=== PATIENT | male | born 1960 | race Caucasian/White ===

== ENCOUNTER 2018-03-10 13:56 | Observation (INO) ==
[2018-03-10 14:37] VITALS: TEMP 98
--- NOTE | 2018-03-10 14:43 | ED ---
HPI General Chief Complaint: Chest Pain Stated Complaint: chest pain Time Seen by Provider: 03/10/18 14:14 Source: patient Mode of arrival: ambulatory Limitations: no limitations History of Present Illness HPI narrative: Patient is a 57-year-old male with history of htn, hyperlipidemia , CAD, history of 21 cast with 19 stents placed, who presents the emergency room for evaluation of chest pain. Patient reports that chest began last night , patient reports that he has a sharp, tight sensation to his substernum. Patient reports that chest pain does radiate to his left shoulder as well as left neck, chest pain is at rest as well as on exertion, he has had shortness of breath with no diaphoresis with the symptoms. Patient reports that nothing makes pain better or worse, he has follow-up with a network pricing consultant, Dr. Ahmadi at [facility] as well as Dr. Kelly in [facility]. Reports concern as his chest pain feels similar to when he has had a heart attack in the past. Complete Quality Measures for STEMI Alert Patients Related Data Allergies Allergy/AdvReac Type Severity Reaction Status Date / Time No Known Allergies Allergy Verified 03/10/18 14:32 Review of Systems Except as stated in HPI: all other systems reviewed are negative [facility] Medical History Medical History CAD (coronary artery disease) (Acute) HTN (hypertension) (Acute) High cholesterol (Acute) Surgical History Surgical History Hx of tonsillectomy (Acute) Stented coronary artery (Acute) Social History Social History Substance History: No History of Abuse Second Hand Smoke Exposure: No Smoking Status: Current every day smoker Tobacco Type: Cigarettes How Often Do You Have a Drink Containing Alcohol: Never Recent Travel in [facility] within the Last 8 Weeks: No Recent Out of Country Travel within the Last 8 Weeks: No Immunization History Tetanus Immunization: <5 Years Hx Influenza Vaccine This Season: Yes Exam Narrative Exam Narrative: GENERAL: moderate distress SKIN: Focused skin assessment warm/dry. HEAD: Atraumatic. Normocephalic. EYES: Pupils equal and round. No scleral icterus. No injection or drainage. ENT: No nasal bleeding or discharge. Mucous membranes pink and moist. NECK: Trachea midline. No JVD. CARDIOVASCULAR: Regular rate and rhythm. No murmur appreciated. RESPIRATORY: No accessory muscle use. Clear to auscultation. Breath sounds equal bilaterally. GASTROINTESTINAL: Abdomen soft, non-tender, nondistended. Hepatic and splenic margins not palpable. MUSCULOSKELETAL: No obvious deformities. No clubbing. No cyanosis. No edema. NEUROLOGICAL: Awake and alert. No obvious cranial nerve deficits. Motor grossly within normal limits. Normal speech. PSYCHIATRIC: Appropriate mood and affect; insight and judgment normal. Course Initial Documented Vital Signs Temperature 98.0 F 03/10/18 14:00 Pulse Rate 81 03/10/18 14:00 Respiratory Rate 28 H 03/10/18 14:00 Blood Pressure 118/65 03/10/18 14:00 Pulse Oximetry 98 03/10/18 14:00 Last Documented Vital Signs Temperature 98.0 F 03/10/18 14:00 Pulse Rate 68 03/10/18 14:59 Respiratory Rate 18 03/10/18 14:59 Blood Pressure 95/56 L 03/10/18 14:59 Pulse Oximetry 95 03/10/18 14:59 Medical Decision Making MDM Narrative Medical decision making narrative: During the course of the patients emergency department visit, the patients history, examination, and differential diagnosis were reviewed with the patient. The patient was placed on a monitor technician with oximetry and frequent blood pressure monitoring. The patient had an IV access obtained and blood work sent for analysis. The patient was initially provided nitro as well as aspirin The patients laboratory studies were reviewed and remarkable for first set of trop which is neg cp improved with 1 sl nitro - patient will be obs in the chest pain unit for serial trops Differential Diagnosis Differential Diagnosis: Differential includes ACS, arrhythmia, electrolyte abnormality, PE, chostonchondritis Medical Records Medical records reviewed: Yes I reviewed the patient's medical records. Lab Data Result diagrams: 03/10/18 15:07 03/10/18 15:07 Lab Results 03/10/18 03/10/18 03/10/18 Range/Units 15: 15: 15: WBC 6.1 (4.0-11.0) th/mm3 RBC 4.15 L (4.50-5.90) mil/mm3 Hgb 13.4 (13.0-17.0) gm/dL Hct 38.3 L (39.0-51.0) % MCV 92.2 (80.0-100.0) fL MCH 32.2 (27.0-34.0) pg MCHC 34.9 (32.0-36.0) % RDW 14.6 (11.6-17.2) % Plt Count 296 (150-450) th/mm3 MPV 7.1 (7.0-11.0) fL Neut % (Auto) 54.3 (16.0-70.0) % Lymph % (Auto) 33.8 (9.0-44.0) % Wilson % (Auto) 6.5 (0.0-8.0) % Eos % (Auto) 4.0 (0.0-4.0) % Baso % (Auto) 1.4 (0.0-2.0) % Neut # (Auto) 3.3 (1.8-7.7) th/mm3 Lymph # (Auto) 2.1 (1.0-4.8) th/mm3 Wilson # (Auto) 0.4 (0.0-0.9) th/mm3 Eos # (Auto) 0.2 (0.0-0.4) th/mm3 Baso # (Auto) 0.1 (0.0-0.2) th/mm3 WBC Differential . Differential Comment Auto diff final PT 10.4 (9.8-11.6) sec INR 1.0 Ratio APTT 26.6 (24.3-30.1) sec Sodium 141 (136-145) meq/L Potassium 3.8 (3.5-5.1) meq/L Chloride 109 H (98-107) meq/L Carbon Dioxide 25.0 (21.0-32.0) meq/L Anion Gap 7 (5-15) meq/L BUN 8 (7-18) mg/dL Creatinine 1.03 (0.60-1.30) mg/dL Estimated GFR 75 L (>89) mL/min Random Glucose 84 (74-106) mg/dL Calcium 8.2 L (8.5-10.1) mg/dL Total Bilirubin 0.4 (0.2-1.0) mg/dL AST 15 (15-37) U/L ALT 16 (12-78) U/L Alkaline Phosphatase 72 (45-117) U/L Total Creatine Kinase 249 (39-308) U/L Troponin I Less than 0.02 L (0.02-0.05) ng/mL Total Protein 6.3 L (6.4-8.2) g/dL Albumin 3.6 (3.4-5.0) g/dL Lipase 102 (73-393) U/L Imaging Data Radiologist's impression: Chest X-Ray 03/10/18 14:21 CONCLUSION: Mild subsegmental basilar airspace disease. No effusion or pneumothorax. ECG Data EKG Prior to Arrival: No Attestation: I personally reviewed and interpreted this ECG as follows: Prior ECG tracings: not available for review Interpretation: EKG at 1419: NSR at 73bpm, qt/qtc: 366/391, no acute st or t wave changes Discharge Plan Discharge Disposition Patient Disposition: 30 Still Patient Discharge Condition Condition: Stable Discharge Details Diagnosis: Chest pain Physicians Team ED Provider: Elva Rosa Primary Care Provider: UNKNOWN, Discharge Instructions Patient Printed Instructions: Chest Pain (ED) Status ED Status: With Doctor
--- NOTE | 2018-03-10 14:51 | XR ---
EXAM DATE: 03/10/2018 2:35 PM EDT AGE/SEX: 57 years / Male INDICATIONS: Chest pain. CLINICAL DATA: This is the patient's initial encounter. Patient reports that signs and symptoms have been present for 2 days and indicates a pain score of 9/10. MEDICAL/SURGICAL HISTORY: Cardiovascular disease. . Cardiac stents COMPARISON: No prior exams available for comparison. FINDINGS: Minimal subsegmental basilar airspace disease. No effusion. No pneumothorax. Heart size normal. CONCLUSION: Mild subsegmental basilar airspace disease. No effusion or pneumothorax. Electronically signed by: Timbo Mars MD 03/10/2018 2:50 PM EDT
[2018-03-10 15:20] LABS: Baso # (Auto) 0.1 th/mm3 (0.0-0.2); Baso % (Auto) 1.4 % (0.0-2.0); Eos # (Auto) 0.2 th/mm3 (0.0-0.4); Hematocrit 38.3 % (39.0-51.0); Hemoglobin 13.4 gm/dL (13.0-17.0); Lymph # (Auto) 2.1 th/mm3 (1.0-4.8); Lymph % (Auto) 33.8 % (9.0-44.0); Mean Corpuscular HGB Conc 34.9 % (32.0-36.0); Mean Corpuscular Hemoglobin 32.2 pg (27.0-34.0); Mean Corpuscular Volume 92.2 fL (80.0-100.0); Mean Platelet Volume 7.1 fL (7.0-11.0); Mono # (Auto) 0.4 th/mm3 (0.0-0.9); Mono % (Auto) 6.5 % (0.0-8.0); Neut # (Auto) 3.3 th/mm3 (1.8-7.7); Neut % (Auto) 54.3 % (16.0-70.0); Platelet Count 296 th/mm3 (150-450); Red Blood Count 4.15 mil/mm3 (4.50-5.90); Red Cell Distribution Width 14.6 % (11.6-17.2); White Blood Count 6.1 th/mm3 (4.0-11.0)
[2018-03-10 15:31] LABS: Activated Partial Thrombo Time 26.6 sec (24.3-30.1); Prothrombin Time 10.4 sec (9.8-11.6)
[2018-03-10 15:39] LABS: Alanine Aminotransferase 16 U/L (12-78); Albumin 3.6 g/dL (3.4-5.0); Anion Gap 7 meq/L (5-15); Aspartate Aminotransferase 15 U/L (15-37); Blood Urea Nitrogen 8 mg/dL (7-18); Calcium 8.2 mg/dL (8.5-10.1); Chloride 109 meq/L (98-107); Glomerular Filtration Rate 75 mL/min (>89); Glucose,Random 84 mg/dL (74-106); Lipase 102 U/L (73-393); Potassium 3.8 meq/L (3.5-5.1); Sodium 141 meq/L (136-145)
[2018-03-10 15:43] LABS: Alkaline Phosphatase 72 U/L (45-117); Creatine Kinase 249 U/L (39-308); Total Protein 6.3 g/dL (6.4-8.2)
[2018-03-10 15:55] LABS: Creatine Kinase MB 2.4 ng/mL (0.5-3.6)
[2018-03-10] MEDS ORDERED: Acetaminophen 500 MG Tablet PO PRN (16:14)
[2018-03-10 18:50] LABS: Creatine Kinase 200 U/L (39-308); Troponin I 0.02 ng/mL (0.02-0.05)
[2018-03-10 19:03] LABS: Creatine Kinase MB 2.3 ng/mL (0.5-3.6)
[2018-03-10] MEDS ORDERED: Acetaminophen 325 MG Tablet PO PRN (19:26)
[2018-03-10 22:27] LABS: Creatine Kinase 181 U/L (39-308)
[2018-03-10 22:39] LABS: Creatine Kinase MB 1.8 ng/mL (0.5-3.6)
[2018-03-10] MEDS: Ketorolac Inj 30 MG/ML (IVP) Vial IV.PUSH SCH (23:12)
[2018-03-11 01:52] LABS: Creatine Kinase 156 U/L (39-308)
[2018-03-11] MEDS: Ketorolac Inj 30 MG/ML (IVP) Vial IV.PUSH SCH (05:22)
[2018-03-11] MEDS ORDERED: Hydrocortisone Sod Succinate 100 MG Vial IV.PUSH ONE (07:59)
--- NOTE | 2018-03-11 08:01 | P.HPCA ---
History of Present Illness Primary Care Physician: UNKNOWN Chief Complaint: Chest pain History of Present Illness: 57 year old male with history of coronary artery disease, 19 cardiac stents, 21 cardiac catheterization, hypertension, and hyperlipidemia who continues to smoke presents emergency room for further evaluation of chest pain. Onset Sunday evening. Location substernal. Characterizes pressure. No radiation. No associated symptoms of nausea, vomiting, dyspnea duration constant from Sunday night all day Sunday. Currently reports mild chest discomfort, although discomfort completely resolved last evening. No precipitating or relieving factors. His engineering mgr is Dr. Lezama at [facility] and Dr. Kelly in [place]. No recent cardiac testing. Endorses compliance with medications. No recent illness. Endorses he feels like he may have overdid it working the last few days. - Diagnosis (1) Chest pain, atypical (2) History of coronary artery disease (3) Tobacco abuse Review of Systems All other systems reviewed negative except as stated in HPI PMFSH - History History Provided By: Patient - Medical History Medical History: Medical History (Last Reviewed 03/11/18 @ 08:54 by MORIS Matias) CAD (coronary artery disease) HTN (hypertension) High cholesterol - Surgical History Surgical History: Surgical History (Last Reviewed 03/11/18 @ 08:55 by MORIS Matias) Hx of tonsillectomy Stented coronary artery - Tobacco History Second Hand Smoke Exposure: No Tobacco Use In Past 30 Days: Yes Smoking Status: Current every day smoker Tobacco Type: Cigarettes Packs Per Day: 1 - Alcohol History How Often Do You Have a Drink Containing Alcohol: Never - Substance Use History Substance History: No History of Abuse - Travel History Recent Travel in the [place] Within the Last 8 Weeks: No Recent Travel Out of the Country Within the Last 8 Weeks: No - Immunization History Tetanus Immunization: <5 Years Hx Influenza Vaccine This Season: Yes Medications and Allergies Active Medications: Active Medications Acetaminophen (Tylenol) 500 mg PO Q4H PRN PRN Reason: HEADACHE Acetaminophen (Tylenol) 650 mg PO Q6H PRN PRN Reason: PAIN 1-6 Hydrocodone Bitart/Acetaminophen ([place] 7.5/325) 7.5 tab PO Q6H PRN PRN Reason: PAIN SCALE 7 TO 10 SEVERE Ondansetron HCl (Zofran Inj) 4 mg IV.PUSH Q6H PRN PRN Reason: NAUSEA Sodium Chloride (Ns Flush) 2 ml IV.FLUSH UNSCH PRN PRN Reason: FLUSH AFTER USING IV ACCESS Last Admin: 03/10/18 14:46 Dose: 2 ml Sodium Chloride (Ns Flush) 2 ml IV.FLUSH BID ANISA Last Admin: 03/10/18 23:15 Dose: 2 ml Allergies Allergy/AdvReac Type Severity Reaction Status Date / Time No Known Allergies Allergy Verified 03/10/18 14:32 Home Medications Medication Instructions Recorded Confirmed Type aspirin 81 mg PO DAILY 03/10/18 03/10/18 History clopidogrel [Plavix] 75 mg PO DAILY 03/10/18 03/10/18 History Exam Vital signs: Vital Signs 03/10/18 14:00 03/10/18 14:24 03/10/18 14:45 Temperature 98.0 F Pulse Rate 58 L 70 Respiratory Rate 22 20 Blood Pressure 101/66 102/60 Pulse Oximetry 98 98 97 03/10/18 14:51 03/10/18 14:59 03/10/18 15:00 Temperature Pulse Rate 68 68 56 L Respiratory Rate 18 18 19 Blood Pressure 101/60 95/56 L 139/81 Pulse Oximetry 95 95 03/10/18 16:00 03/10/18 17:00 03/10/18 18:24 Temperature 98.2 F Pulse Rate 56 L 56 L 60 Respiratory Rate 18 16 20 Blood Pressure 127/81 121/80 127/72 Pulse Oximetry 99 99 03/10/18 19:05 03/10/18 21:15 03/10/18 23:28 Temperature 98 F 98.2 F Pulse Rate 61 56 L Respiratory Rate 16 22 16 Blood Pressure 121/66 115/57 L Pulse Oximetry 99 98 03/10/18 23:42 03/11/18 04:00 03/11/18 07:39 Temperature 98.5 F 98.0 F Pulse Rate 59 L 58 L Respiratory Rate 21 16 16 Blood Pressure 109/66 124/64 Pulse Oximetry 97 97 Intake & Output 03/10/18 03/11/18 03/11/18 18:59 06:59 18:59 Weight 61.235 kg Other: # Voids 1 Weight On Admission 61.235 kg Narrative: GENERAL: Alert WN, WD, NAD, pleasant, male who appears older than stated age. HEAD: NC, AT NECK: Supple, no masses, trachea midline CV: RRR, without murmur, rub, gallop, no JVD. Chest wall nontender with palpations. RESP: Clear lungs throughout bilateral, no crackles, wheeze, rhonchi, symmetrical chest rise, nonlabored, able to speak in full sentences ABD: Soft, NT, ND, no masses, positive bowel tones EXT: Pulses +2x4, no dependent edema MS: Normal tone -4 extremities, nontender, no obvious deformities, full range of motion NEURO: CN II through CN XII grossly intact, motor strength 5/5 PSYCH: A+O x3, pleasant affect, appropriate speech, mood, insight and judgment SKIN: Normal turgor, normal texture, no lesions, no rashes, brisk cap refill, even hair distribution Results 03/10/18 15:03/10/18 15:07 Cardiac Enzymes 03/10/18 03/10/18 03/10/18 Range/Units 15:07 15:07 18:07 AST 15 (15-37) U/L CK-MB (CK-2) 2.4 2.3 (0.5-3.6) ng/mL Troponin I Less than 0.02 L 0.02 (0.02-0.05) ng/mL B-Natriuretic Peptide 40 (0-100) pg/mL 03/10/18 03/11/18 Range/Units 21:51 00:55 AST (15-37) U/L CK-MB (CK-2) 1.8 (0.5-3.6) ng/mL Troponin I Less than 0.02 L Less than 0.02 L (0.02-0.05) ng/mL B-Natriuretic Peptide (0-100) pg/mL Coagulation 03/10/18 03/10/18 Range/Units 15:07 15:07 PT 10.4 (9.8-11.6) sec APTT 26.6 (24.3-30.1) sec B-Natriuretic Peptide 40 (0-100) pg/mL CBC 03/10/18 Range/Units 15:07 WBC 6.1 (4.0-11.0) th/mm3 RBC 4.15 L (4.50-5.90) mil/mm3 Hgb 13.4 (13.0-17.0) gm/dL Hct 38.3 L (39.0-51.0) % Plt Count 296 (150-450) th/mm3 Neut # (Auto) 3.3 (1.8-7.7) th/mm3 Lymph # (Auto) 2.1 (1.0-4.8) th/mm3 [place] # (Auto) 0.4 (0.0-0.9) th/mm3 Eos # (Auto) 0.2 (0.0-0.4) th/mm3 Baso # (Auto) 0.1 (0.0-0.2) th/mm3 Comprehensive Metabolic Panel 03/10/18 Range/Units 15:07 Sodium 141 (136-145) meq/L Potassium 3.8 (3.5-5.1) meq/L Chloride 109 H (98-107) meq/L Carbon Dioxide 25.0 (21.0-32.0) meq/L BUN 8 (7-18) mg/dL Creatinine 1.03 (0.60-1.30) mg/dL Calcium 8.2 L (8.5-10.1) mg/dL AST 15 (15-37) U/L ALT 16 (12-78) U/L Alkaline Phosphatase 72 (45-117) U/L Total Protein 6.3 L (6.4-8.2) g/dL Albumin 3.6 (3.4-5.0) g/dL Intake and Output 03/10/18 03/11/18 03/11/18 22:59 06:59 14:59 Other: # Voids 1 Weight 61.235 kg Weight On Admission 61.235 kg EKG interpretations - EKG EKG results cardiology: sinus rhythm, normal axis, normal QRS, normal ST/T Caprini VTE Risk Assessment Caprini VTE Risk Assessment: No/Low Risk (score <= 1) Caprini Risk Assessment Model: Point Value = 1 Point Value = 2 Point Value = 3 Point Value = 5 Age 41-60 Minor surgery BMI > 25 kg/m2 Swollen legs Varicose veins or History of unexplained or recurrent spontaneous Oral contraceptives or hormone replacement Sepsis (< 1 month) Serious lung disease, including pneumonia (< 1 month) Abnormal pulmonary function Acute myocardial infarction Congestive heart failure (< 1 month) History of inflammatory bowel disease Medical patient at bed rest Age 61-74 Arthroscopic surgery Major open surgery (> 45 min) Laparoscopic surgery (> 45 min) Malignancy Confined to bed (> 72 hours) Immobilizing plaster cast Central venous access Age >= 75 History of VTE Family history of VTE Factor V Leiden Prothrombin [id number] Lupus anticoagulant Anticardiolipin antibodies Elevated serum homocysteine Heparin-induced thrombocytopenia Other congenital or acquired thrombophilia Stroke (< 1 month) Elective arthroplasty Hip, pelvis, or leg fracture Acute spinal cord injury (< 1 month) Prophylaxis Regimen: Total Risk Factor Score Risk Level Prophylaxis Regimen 0-1 Low Early ambulation 2 Moderate Order ONE of the following: *Sequential Compression Device (SCD) *Heparin 5000 units SQ BID 3-4 Higher Order ONE of the following medications: *Heparin 5000 units SQ TID *Enoxaparin/Lovenox 40 mg SQ daily (WT < 150 kg, CrCl > 30 mL/min) *Enoxaparin/Lovenox 30 mg SQ daily (WT < 150 kg, CrCl > 10-29 mL/min) *Enoxaparin/Lovenox 30 mg SQ BID (WT < 150 kg, CrCl > 30 mL/min) AND/OR *Sequential Compression Device (SCD) 5 or more Highest Order ONE of the following medications: *Heparin 5000 units SQ TID (Preferred with Epidurals) *Enoxaparin/Lovenox 40 mg SQ daily (WT < 150 kg, CrCl > 30 mL/min) *Enoxaparin/Lovenox 30 mg SQ daily (WT < 150 kg, CrCl > 10-29 mL/min) *Enoxaparin/Lovenox 30 mg SQ BID (WT < 150 kg, CrCl > 30 mL/min) AND *Sequential Compression Device (SCD) Assessment and Plan - Assessment (1) Chest pain, atypical Code(s): R07.89 - Other chest pain Status: Acute Plan: Admitted to chest pain center. ACS ruled out with 3 sets of EKGs and cardiac enzymes. Seen evaluated by Dr. Julio Alonso patient believes he may be allergic to "an IV dye with the nuclear test." Due to uncertainty of allergy will provide Solu-Cortef prior to Lexiscan. This is been discussed with patient he is agreeable to plan of care. If cardiac testing is unremarkable plans are to discharge home with follow-up with his PCP and his engineering mgr. Toradol 30 mg 2 doses given overnight, reports chest pain relief with medications. 1110 Notified by RN patient wants to leave AMA to smoke a cigarette. RN discussed with patient cardiac test will result an minute, however patient still left AMA. (2) History of coronary artery disease Code(s): Z86.79 - Personal history of other diseases of the circulatory system Status: Chronic Plan: Continue home medications. Currently home medication is not updated, likely because patient does not remember medications he is taking. Once updated will review and update accordingly. (3) Tobacco abuse Code(s): Z72.0 - Tobacco use Status: Chronic Plan: Strongly encouraged and stressed importance of tobacco cessation. Instructed to quit smoking. H&P: Quality - VTE Deep Vein Thrombosis/Pulmonary Embolism Present on Admission: No
[2018-03-11] MEDS ORDERED: Regadenoson Inj 0.4 MG/5 ML Syringe IV.PUSH ONE (10:05)
--- NOTE | 2018-03-11 11:20 | NM ---
EXAM DATE: 03/11/2018 11:09 AM EDT AGE/SEX: 57 years / Male INDICATIONS:Angina. . Mid chest pain for one day. CLINICAL DATA: This is the patient's initial encounter. Patient reports that signs and symptoms have been present for 1 day and indicates a pain score of 5/10. MEDICAL/SURGICAL HISTORY: Cardiovascular disease. Hypertension. Tonsillectomy. Coronary arter y stent. COMPARISON: No prior exams available for comparison. No external comparison. DOSE: 8.7 mCi Tc 99m Myoview at rest 25.9 mCi [id number] at stress 0.4 mg Lexiscan STRESS SYMPTOMS: Dyspnea and chest pain. EJECTION FRACTION: 42 % TECHNIQUE: The patient underwent pharmacologic stress with infusion of prescribed dose. Continuous ECG tracing was monitored during stress. Gated SPECT imaging was performed after stress and conventi onal SPECT imaging was performed at rest. The examination was performed on a SPECT/CT scanner, both attenuation and non-corrected datasets were reviewed. FINDINGS: Distribution: The maximum perfused segment at stress is in the septal wall. Perfusion Study: The pattern of perfusion at stress reveals a probable fixed perfusion defect in th e apex. Gated Study: Global hypokinesis with ejection fraction 42%. RISK CATEGORY: Intermediate (1-3 % Annual Mortality Rate) CONCLUSION: 1. No significant reversibility to suggest ischemia. 2. Questionable fixed perfusion defect near the apex, possibly from prior infarct. 3. Global hypokinesis with ejection fraction 42%. Electronically signed by: Timbo Mars MD 03/11/2018 11:19 AM EDT
[2018-03-12 21:01] VITALS: BP 124/64; PULSE 58; RESP 16; O2SAT 97
--- NOTE | 2018-03-13 09:07 | ECG ---
Date Performed: 03/10/2018 Time Performed: 14:19:11 PTAGE: 57 years EKG: Sinus rhythm LEFT ANTERIOR FASCICULAR BLOCK INFERIOR MYOCARDIAL INFARCTION ABNORMAL ECG WARNING: DATA QUALITY MAY AFFECT INTERPRETATION PREVIOUS TRACING : 11/28/2005 01.37 Since previous tracing, no significant change noted DOCTOR: Julio Alonso Interpretating Date/Time 03/13/2018 09:04:43
--- NOTE | 2018-03-13 09:07 | ECG ---
Date Performed: 03/10/2018 Time Performed: 18:15:59 PTAGE: 57 years EKG: Sinus rhythm POSSIBLE RIGHT VENTRICULAR CONDUCTION DELAY LEFT ANTERIOR FASCICULAR BLOCK INFERIOR MYOCARDIAL INFAR CTION ABNORMAL ECG PREVIOUS TRACING : 03/10/2018 14.19 Since previous tracing, no significant change noted DOCTOR: Julio Alonso Interpretating Date/Time 03/13/2018 09:04:31
--- NOTE | 2018-03-13 09:07 | ECG ---
Date Performed: 03/10/2018 Time Performed: 21:52:44 PTAGE: 57 years EKG: SINUS BRADYCARDIA LEFT ANTERIOR FASCICULAR BLOCK INFERIOR MYOCARDIAL INFARCTION ABNORMAL EC G PREVIOUS TRACING : 03/10/2018 18.15 Since previous tracing, no significant change noted DOCTOR: Julio Alonso Interpretating Date/Time 03/13/2018 09:04:20
--- NOTE | 2018-03-13 09:09 | TR ---
Date Performed: 03/11/2018 Time Performed: 09:52:35 DOCTOR: Julio Alonso DRUG LIST: CLINICAL HISTORY: REASON FOR TEST: REASON FOR ENDING: OBSERVATION: CONCLUSION: COMMENTS: Lexiscan stress test was performed under standard four minute protocol. Radionuclide was injected one minute prior to ending the test. No electrocardiographic abormalities were present t o suggest ischemia. Nuclear imaging and interpretation are pending.
== END 2018-03-11 11:12 | disposition left against medical advice (07) ==
LOC: NEDA 13:56 → NEPFCDU 13:56 → NEPC 13:56 → NEPFCDU 17:01
DX: Z95.5 Presence of coronary angioplasty implant and graft; R07.89 Other chest pain; E78.00 Pure hypercholesterolemia, unspecified; I25.2 Old myocardial infarction; E78.5 Hyperlipidemia, unspecified; I25.10 Atherosclerotic heart disease of native coronary artery without angina pectoris; I10 Essential (primary) hypertension; F17.210 Nicotine dependence, cigarettes, uncomplicated